=== PATIENT | female | born 1975 | race Caucasian/White ===

== ENCOUNTER 2024-03-07 09:41 | Outpatient (CLI) | payer OTHER, SELFPAY ==
[2024-03-07 10:32] LABS: Basophils Percent Auto 0.5 % (0.2-1.2); Eosinophils Percent Auto 0.3 % (0-4.4); Hematocrit 43.6 % (37.0-47.0); Immature Granulocyte Absolute 0.03 K/mm3 (0.00-0.031); Immature Granulocyte Percent A 0.5 % (0-0.5); Lymphocytes Absolute Auto 1.26 K/mm3 (0.9-3.2); Lymphocytes Percent Auto 19.3 % (18.3-44.2); Mean Corpuscular HGB Conc 34.4 g/dl (32-36); Mean Corpuscular Hemoglobin 34.4 pg (26-34); Mean Platelet Volume 10.9 fl (7.4-10.4); Monocytes Absolute Auto 0.5 K/mm3 (0.1-0.6); Monocytes Percent Auto 7.4 % (2.6-8.5); Neutrophils Absolute Auto 4.7 K/mm3 (1.3-6.7); Platelet Count Result 231 k/mm3 (150-375); Red Blood Count 4.36 M/mm3 (4.2-5.4); Red Cell Distribution Width 12.5 % (11.5-14.5); White Blood Count 6.5 K/mm3 (4.5-10.0)
[2024-03-07 10:51] LABS: Alanine Aminotransferase 17 U/L (6-35); Albumin Level 4.4 g/dL (3.5-5.1); Alkaline Phosphatase 46 U/L (38-126); Anion Gap 9 mmol/L (4-12); Aspartate Amino Transferase 24 U/L (14-36); Bilirubin,Total 0.9 mg/dL (0.2-1.3); Blood Urea Nitrogen 16 mg/dL (7-17); Calcium 8.9 mg/dL (8.4-10.2); Carbon Dioxide 29 mmol/L (22-30); Chloride 101 mmol/L (98-107); Cholesterol 163 mg/dL (0-200); Estimated Glomerular Filt Rate > 60; Glucose 90 mg/dL (65-110); HDL Direct 73 mg/dL; Potassium 4.4 mmol/L (3.4-5.0); Sodium 139 mmol/L (137-145); Triglycerides 60 mg/dL (<150)
[2024-03-07 11:03] LABS: LDL Cholesterol Direct 69 mg/dL
[2024-03-07 12:11] LABS: Iron 165 ug/dL (37-170)
[2024-03-07 12:41] LABS: Percent Iron Saturation 61 % (20-50)
[2024-03-08 14:08] LABS: FSH 5.4 mIU/mL; LH 2.5 mIU/mL; Progesterone 3.6 ng/mL; Prolactin 8.3 ng/mL
[2024-03-13 14:29] LABS: Testosterone Free 1.4 pg/mL (0.1-6.4); Testosterone Total 15 ng/dL (2-45)
[2024-03-15 16:37] LABS: Estrogen 342 pg/mL
== END 2024-03-07 09:42 | disposition home or self-care (01) ==
PROVIDERS: PCP Nurse Practitioner Family; Visit Provider Nurse Practitioner Family
DX: Z00.00 Encounter for general adult medical examination without abnormal findings (principal); N95.9 Unspecified menopausal and perimenopausal disorder; R53.83 Other fatigue; R53.0 Neoplastic (malignant) related fatigue; R53.81 Other malaise
CPT/HCPCS: 36415; 80053; 80061; 82248; 82306; 82672; 82728; 83001; 83002; 83540; 83550; 84144; 84146; 84402; 84403; 84443; 85025